=== PATIENT | male | born 1955 | race Caucasian/White ===

== ENCOUNTER 2016-09-02 13:28 | Inpatient (IN) | payer SELFPAY ==
[~2016-09-02] VITALS: Ht 172.7 cm; Wt 101.5 kg
[2016-09-02] MEDS ORDERED: SODIUM CHLORIDE FLUSH 10ML SYR IVF ONE (15:30)
[2016-09-02 15:59] LABS: ASPARTATE AMINO TRANSFERASE 202 U/L (15-37); BLOOD UREA NITROGEN 20 mg/dL (7-18)
[2016-09-02] MEDS ORDERED: OMEP20TA62 PO (17:21)
[2016-09-02] MEDS ORDERED: MORPHINE SULFATE 4 MG/ML, 1ML ONE (17:47)
[2016-09-02] MEDS ORDERED: ONDANSETRON 2MG/ML, 2ML ONE (17:47)
[2016-09-02] MEDS ORDERED: ONDANSETRON 2MG/ML, 2ML IVPush ONE (18:00)
[2016-09-02] MEDS ORDERED: SODIUM CHLORIDE 0.9%, 500ML IVBOLUS ONE (18:00)
[2016-09-02] MEDS ORDERED: morphine SULFATE 10 MG/ML, 1ML IVPush ONE (18:00)
[2016-09-02] MEDS ORDERED: PROMETHAZINE 25 MG/ML, 1ML IM PRN (19:30)
[2016-09-02] MEDS ORDERED: BISACODYL 10 MG SUPP PR PRN (19:30)
[2016-09-02] MEDS ORDERED: DOCUSATE 100 MG CAPSULE PO PRN (19:30)
[2016-09-02] MEDS ORDERED: POLYETHYLENE GLYCOL 17 GM PACKET PO PRN (19:30)
[2016-09-02] MEDS: ENOXAPARIN 40 MG/0.4 ML SQ SCH (19:30)
[2016-09-02] MEDS ORDERED: ZOLPIDEM 5MG TABLET PO PRN (19:30)
[2016-09-02 20:10] VITALS: BP 116/66
[2016-09-02] MEDS: NS + 20MEQ KCL 1,000 ML IV SCH (23:01)
[2016-09-02] MEDS: ONDANSETRON 2MG/ML, 2ML IVPush PRN (23:07)
[2016-09-02] MEDS: OXYcodone IR 5MG TABLET PO PRN (23:07)
[2016-09-02 23:26] LABS: DAU SCREEN DISCLAIMER
[2016-09-03 01:14] VITALS: BP 120/72
[2016-09-03 05:32] LABS: BLOOD UREA NITROGEN 16 mg/dL (7-18)
[2016-09-03 05:44] LABS: ASPARTATE AMINO TRANSFERASE 139 U/L (15-37); TOTAL IRON BINDING CAPACITY 278 mcg/dL (250-450)
[2016-09-03 05:49] LABS: ACETAMINOPHEN < 2 mcg/mL (10-30)
[2016-09-03] MEDS: NS + 20MEQ KCL 1,000 ML IV SCH ×2 (06:17→16:43)
[2016-09-03 07:09] LABS: HEPATITIS C VIRUS ANTIBODY Nonreactive (Nonreactive)
[2016-09-03] MEDS: ONDANSETRON 2MG/ML, 2ML IVPush PRN ×2 (07:46→19:53)
[2016-09-03 08:07] VITALS: BP 114/71
[2016-09-03] MEDS: OXYcodone IR 5MG TABLET PO PRN ×3 (12:23→21:51)
[2016-09-03 12:44] VITALS: BP 124/74
[2016-09-03] MEDS: CIPROFLOXACIN/PMX 400MG/200ML 200 ML IV SCH (16:43)
[2016-09-03] MEDS: ENOXAPARIN 40 MG/0.4 ML SQ SCH (19:30)
[2016-09-03] MEDS: METRONIDAZOLE PMX 500MG/100ML 100 ML IV SCH (19:41)
[2016-09-03] MEDS: morphine SULFATE 10 MG/ML, 1ML IVPush PRN (19:41)
[2016-09-03 19:42] VITALS: BP 103/65
[2016-09-04] MEDS: NS + 20MEQ KCL 1,000 ML IV SCH
[2016-09-04] MEDS: morphine SULFATE 10 MG/ML, 1ML IVPush PRN ×2 (00:27→03:32)
[2016-09-04 02:24] VITALS: BP 112/69
[2016-09-04] MEDS: METRONIDAZOLE PMX 500MG/100ML 100 ML IV SCH ×3 (03:32→23:19)
[2016-09-04] MEDS: ONDANSETRON 2MG/ML, 2ML IVPush PRN (03:32)
[2016-09-04] MEDS: CIPROFLOXACIN/PMX 400MG/200ML 200 ML IV SCH ×2 (04:41→17:54)
[2016-09-04 05:43] LABS: BLOOD UREA NITROGEN 10 mg/dL (7-18)
[2016-09-04 05:58] LABS: ASPARTATE AMINO TRANSFERASE 151 U/L (15-37)
[2016-09-04 07:42] VITALS: BP 111/67
[2016-09-04] MEDS ORDERED: FENTANYL PF 250 MCG/5ML ONE (09:17)
[2016-09-04] MEDS ORDERED: MIDAZOLAM 1 MG/ML, 2ML ONE (09:17)
[2016-09-04] MEDS ORDERED: ONDANSETRON 2MG/ML, 2ML IVPush PRN (09:30)
[2016-09-04] MEDS ORDERED: FENTANYL PF 100 MCG/2ML IV PRN (09:30)
[2016-09-04] MEDS ORDERED: hydrALAzine 20 MG/ML, 1ML IV PRN (09:30)
[2016-09-04] MEDS ORDERED: MEPERIDINE/PF 25MG/0.5ML IVPush PRN (09:30)
[2016-09-04] MEDS ORDERED: LABETALOL 5MG/ML, 20ML IV PRN (09:30)
[2016-09-04] MEDS ORDERED: HYDROmorphone 1 MG/ML, 1ML IV PRN (09:30)
[2016-09-04] MEDS ORDERED: PROMETHAZINE 25 MG/ML, 1ML IV PRN (09:30)
[2016-09-04] MEDS ORDERED: METOCLOPRAMIDE 5 MG/ML, 2ML IV PRN (09:30)
[2016-09-04] MEDS ORDERED: MIDAZOLAM 1 MG/ML, 2ML IV PRN (09:30)
[2016-09-04] MEDS ORDERED: ACETAMINOPHEN 325 MG TABLET PO PRN (09:30)
[2016-09-04] MEDS ORDERED: OXYcodone 5 MG/5 ML ORAL.SOL UDC PO PRN (09:30)
[2016-09-04] MEDS ORDERED: PIPERACILLIN/TAZO/PMX 3.375GM 50 ML ONE (10:28)
[2016-09-04] MEDS ORDERED: INDOMETHACIN 50 MG SUPP.RECT ONE (10:52)
[2016-09-04] MEDS ORDERED: INDOMETHACIN 50 MG SUPP.RECT PR ONE (11:00)
[2016-09-04] MEDS ORDERED: OMNIPAQUE 350 MG/ML, 50 ML BOTTLE ONE (11:00)
[2016-09-04 12:20] VITALS: BP 143/80
[2016-09-04] MEDS ORDERED: ROCURONIUM 10 MG/ML ONE (15:42)
[2016-09-04] MEDS ORDERED: PROPOFOL 10 MG/ML, 20ML ONE (15:42)
[2016-09-04] MEDS ORDERED: DEXAMETHASONE 4 MG/ML, 1ML ONE (15:42)
[2016-09-04] MEDS ORDERED: ONDANSETRON 2MG/ML, 2ML ONE (15:42)
[2016-09-04] MEDS ORDERED: SUCCINYLCHOLINE 20 MG/ML, 10ML ONE (15:42)
[2016-09-04] MEDS: ENOXAPARIN 40 MG/0.4 ML SQ SCH (19:30)
[2016-09-04 19:51] VITALS: BP 109/64
[2016-09-05 03:11] VITALS: BP 107/54
[2016-09-05] MEDS: CIPROFLOXACIN/PMX 400MG/200ML 200 ML IV SCH (05:32)
[2016-09-05] MEDS: METRONIDAZOLE PMX 500MG/100ML 100 ML IV SCH ×2 (07:52→15:41)
[2016-09-05 09:05] VITALS: BP 122/73
[2016-09-05 09:33] LABS: ASPARTATE AMINO TRANSFERASE 57 U/L (15-37); BLOOD UREA NITROGEN 17 mg/dL (7-18)
[2016-09-05] MEDS ORDERED: METR500T PO (13:24)
[2016-09-05] MEDS ORDERED: CIPR500T87 PO (13:24)
[2016-09-05 14:07] LABS: ANA DIRECT Negative (Negative); COMPLEMENT C3 164 mg/dL (82-167); COMPLEMENT C4 27 mg/dL (14-44); INTERMYOFIBRILLAR AB Negative (Neg:<1:20); MITOCHONDRIAL (M2) AB 3.6 Units (0.0-20.0); PARIETAL CELL AB 5.6 Units (0.0-20.0); PROTEINASE 3 (PR-3) AB <3.5 U/mL (0.0-3.5); RA LATEX TURBIDITY <10.0 IU/mL (0.0-13.9); SARCOLEMMA AB Negative (Neg:<1:20); SJOGREN'S SS-A AB <0.2 AI (0.0-0.9); STRIATION AB Negative (Neg:<1:40); THYROID PEROXIDASE (TPO) AB 8 IU/mL (0-34)
[2016-09-05 14:55] VITALS: BP 116/68
[2016-09-06] MEDS ORDERED: OMEPRAZOLE 20 MG CAPSULE.DR PO SCH (07:30)
== END 2016-09-05 16:06 | disposition home or self-care (01) | DRG 445 ==
LOC: ED 18:34 → SUATTDRO 19:07 → EDIP 19:24 → 3NE 20:02
PROC: 0F798ZZ Dilation of Common Bile Duct, Via Natural or Artificial Opening Endoscopic (ICD-10-PCS; 2016-09-04)
PROC: BF131ZZ Fluoroscopy of Gallbladder and Bile Ducts using Low Osmolar Contrast (ICD-10-PCS; 2016-09-04)
PROC: 0FC98ZZ Extirpation of Matter from Common Bile Duct, Via Natural or Artificial Opening Endoscopic (ICD-10-PCS; principal; 2016-09-04 09:45)
DX: K80.31 Calculus of bile duct with cholangitis, unspecified, with obstruction (principal); B17.9 Acute viral hepatitis, unspecified; E44.0 Moderate protein-calorie malnutrition; E87.1 Hypo-osmolality and hyponatremia; D72.829 Elevated white blood cell count, unspecified; F17.290 Nicotine dependence, other tobacco product, uncomplicated; K21.9 Gastro-esophageal reflux disease without esophagitis; K76.0 Fatty (change of) liver, not elsewhere classified; D64.9 Anemia, unspecified; E78.1 Pure hyperglyceridemia; Z82.0 Family history of epilepsy and other diseases of the nervous system; Z83.6 Family history of other diseases of the respiratory system; Z88.0 Allergy status to penicillin; Z87.440 Personal history of urinary (tract) infections; Z68.34 Body mass index [BMI] 34.0-34.9, adult
CPT/HCPCS: 36415; 74181; 74330; 76700; 80053; 80061; 80074; 80307; 81001; 82103; 82247; 82248; 82390; 82728; 82977; 83516; 83520; 83540; 83550; 83690; 83880; 84439; 84443; 84481; 85025; 85610; 85730; 86038; 86160; 86225; 86235; 86255; 86256; 86376; 86431; 87040; 93005; 96361; 96374; 96375; J0744; J1100; J2250; J2405; J2543; J2704; J3010; J3480; Q9967; C1769; C1894; C2625; J0330; J2270; J7040